=== PATIENT | male | born 1950 ===

== ENCOUNTER → 2019-12-18 | Outpatient (CLI) | payer OTHER | END | disposition home or self-care (01) | LOC: LAB SRC 10:00 → LAB SHORT 10:00 → LAB FUT 12-15 16:20 → EDSTATUS 12-15 16:20 | DX: L23.9 Allergic contact dermatitis, unspecified cause (principal) | CPT/HCPCS: 87177; 87209 ==

== ENCOUNTER 2025-06-01 10:38 | Day surgery (SDC) | payer OTHER | END 2025-06-01 13:40 | disposition home or self-care (01) | LOC: ORSCSDS 10:38 | PROC: 0LB50ZZ Excision of Right Lower Arm and Wrist Tendon, Open Approach (ICD-10-PCS; principal; 2025-06-01) | PROC: 0LN50ZZ Release Right Lower Arm and Wrist Tendon, Open Approach (ICD-10-PCS; principal; 2025-06-01) | DX: M65.4 Radial styloid tenosynovitis [de Quervain] (principal); R22.31 Localized swelling, mass and lump, right upper limb; E11.9 Type 2 diabetes mellitus without complications; K21.9 Gastro-esophageal reflux disease without esophagitis; E66.9 Obesity, unspecified; Z68.29 Body mass index [BMI] 29.0-29.9, adult; E07.9 Disorder of thyroid, unspecified; Z79.82 Long term (current) use of aspirin; Z79.4 Long term (current) use of insulin; Z79.85 Long-term (current) use of injectable non-insulin antidiabetic drugs; Z79.899 Other long term (current) drug therapy; Z87.891 Personal history of nicotine dependence ==